=== PATIENT | male | born 1975 | race Caucasian/White ===

== ENCOUNTER → 2018-03-01 10:36 | Outpatient (CLI) | payer MEDICAID, SELFPAY ==
--- NOTE | 2018-03-01 10:36 | DI.REPORT_ITS ---
SYMPTOM/DIAGNOSIS: FRACTURE t14.8, TIB/FIB FRACTURE EPAIRED WITH HARDWARE RIGHT ANKLE: There are mild degenerative changes involving the mortise joint. There is no evidence of a fracture or dislocation. Note is made of the distal portion of an intramedullary nela and screw fixation device in the tibia.
== END ==
PROVIDERS: PCP Family Medicine; Visit Provider Family Medicine
DX: M25.571 Pain in right ankle and joints of right foot (principal); M19.071 Primary osteoarthritis, right ankle and foot
CPT/HCPCS: 73610

== ENCOUNTER 2020-05-19 10:08 | Outpatient (CLI) | payer MEDICAID, SELFPAY ==
--- NOTE | 2020-05-19 10:55 | DI.RAD_ITS ---
EXAM: XR SHOULDER LT COMPLETE 2+V CLINICAL HISTORY: SHOULDER JOINT DEFORMITY M21.929, H/O REPAIR LT CLAVICLE TECHNIQUE: COMPARISON: No exams were available for comparison FINDINGS: Five views were obtained. There is plate and screw fixation of the clavicle. There are prominent hy pertrophic degenerative changes of the acromioclavicular joint. Cartilaginous joint space of the gle nohumeral joint appears fairly well preserved. Moderate osteophyte formation noted at the greater tu berosity of the humerus and there are a couple of probable small subchondral cysts of the greater tub erosity of the humerus. Minimal marginal osteophyte formation of the glenoid noted. IMPRESSION: Degenerative changes as described above, hypertrophic AC joint changes are present. RADIATION DOSE DELIVERED: Total DLP
== END 2020-05-19 10:28 ==
PROVIDERS: PCP Family Medicine; Visit Provider Family Medicine
DX: M19.012 Primary osteoarthritis, left shoulder (principal); M21.922 Unspecified acquired deformity of left upper arm
CPT/HCPCS: 73030

== ENCOUNTER 2020-06-05 18:34 | Outpatient (REF) | payer MEDICAID, SELFPAY ==
[2020-06-10 02:00] LABS: SARS-CoV-2 RNA Undetected (Undetected); SARS-CoV-2 Specimen Source Nasal
== END 2020-06-05 18:54 ==
LOC: NCHCN 18:34
PROVIDERS: PCP Family Medicine; Visit Provider Physician Assistant
DX: R05 Cough (principal)
CPT/HCPCS: U0003

== ENCOUNTER 2020-09-30 19:07 | Outpatient (REF) | payer MEDICAID, SELFPAY ==
[2020-09-30 19:44] LABS: Hemoglobin A1C 5.8 % (<5.7)
[2020-09-30 19:53] LABS: Anion Gap 9.7 mmol/L (3-11); BUN 12 mg/dL (7-18); CO2 27.3 mmol/L (21.0-32.0); Calcium 8.8 mg/dL (8.5-10.1); Calculated LDL 139 mg/dL (<100); Chloride 104 mmol/L (98-107); Cholesterol 214 mg/dL (<200); Glucose 141 mg/dL (74-106); HDL Cholesterol 46 mg/dL (40-60); Potassium 3.6 mmol/L (3.5-5.1); Sodium 141 mmol/L (136-145); TSH (W/Ref FT4) 2.31 uIU/mL (0.36-3.74); Triglyceride 146 mg/dL (<150)
[2020-10-02 09:17] LABS: Hepatitis B Surface Ag Negative (Negative)
[2020-10-02 09:53] LABS: HIV-1/2 Ag & Ab Screen Negative (Negative)
[2020-10-02 10:14] LABS: Hepatitis C Ab w Rflx HCV PCR Negative (Negative)
== END 2020-09-30 19:08 | disposition home or self-care (01) ==
LOC: NCHCN 19:07
PROVIDERS: PCP Family Medicine; Visit Provider Family Medicine
DX: I10 Essential (primary) hypertension (principal); Z11.59 Encounter for screening for other viral diseases; Z11.4 Encounter for screening for human immunodeficiency virus [HIV]; Z13.1 Encounter for screening for diabetes mellitus; Z13.220 Encounter for screening for lipoid disorders
CPT/HCPCS: 80048; 80061; 86803; 87340; 87389; 83036; 84443

== ENCOUNTER 2021-07-19 15:58 | Outpatient (REF) | payer MEDICAID, SELFPAY ==
[2021-07-21 09:54] LABS: COVID-19 RT-PCR UVMMC Result Negative (Negative)
== END 2021-07-19 15:59 | disposition home or self-care (01) ==
LOC: NCHCN 15:58
PROVIDERS: PCP Family Medicine; Visit Provider Family Medicine
DX: Z20.822 Contact with and (suspected) exposure to COVID-19 (principal); R05.8 Other specified cough
CPT/HCPCS: U0003

== ENCOUNTER → 2022-01-05 01:26 | Outpatient (CLI) | payer MEDICAID, SELFPAY | PROVIDERS: PCP Family Medicine; Visit Provider Family Medicine ==

== ENCOUNTER 2023-12-22 15:42 | Outpatient (REF) | payer MEDICAID, SELFPAY ==
[2023-12-28 05:48] LABS: Methylphenidate 10 ng/mL (Cutoff: 10); Ritalinic Acid 2165 ng/mL (Cutoff: 50)
== END 2023-12-22 15:43 | disposition home or self-care (01) ==
LOC: NCHCN 15:42
PROVIDERS: PCP Family Medicine; Visit Provider Student in an Organized Health Care Education/Training Program
DX: F90.0 Attention-deficit hyperactivity disorder, predominantly inattentive type (principal); Z51.81 Encounter for therapeutic drug level monitoring; Z79.899 Other long term (current) drug therapy
CPT/HCPCS: 80360

== ENCOUNTER 2024-10-11 16:08 | Outpatient (REF) | payer MEDICAID, SELFPAY ==
[2024-10-11 18:05] LABS: ALT 52 U/L (16-63); AST 21 U/L (15-37); Albumin 3.5 g/dL (3.4-5.0); Alkaline Phosphatase 112 U/L (46-116); Bilirubin, Direct 0.1 mg/dL (0.0-0.2); Bilirubin, Total 0.5 mg/dL (0.2-1.0); Total Protein 7.2 g/dL (6.4-8.2)
== END 2024-10-11 16:09 | disposition home or self-care (01) ==
LOC: NCHCN 16:08
PROVIDERS: PCP Family Medicine; Visit Provider Student in an Organized Health Care Education/Training Program
DX: F11.21 Opioid dependence, in remission (principal)
CPT/HCPCS: 80076

== ENCOUNTER 2025-01-01 13:46 | Outpatient (REF) | payer MEDICAID, SELFPAY ==
[2025-01-01 16:21] LABS: ALT 45 U/L (16-63); AST 28 U/L (15-37); Albumin 3.7 g/dL (3.4-5.0); Alkaline Phosphatase 119 U/L (46-116); Anion Gap 7.7 mmol/L (3-11); BUN 10 mg/dL (7-18); Bilirubin, Total 0.4 mg/dL (0.2-1.0); CO2 29.3 mmol/L (21.0-32.0); Calcium 8.7 mg/dL (8.5-10.1); Calculated LDL 130 mg/dL (<100); Chloride 101 mmol/L (98-107); Cholesterol 201 mg/dL (<200); Estimated GFR 92.84 (mL/min/1.73m2); Glucose 137 mg/dL (74-106); HDL Cholesterol 42 mg/dL (>or=40); Potassium 3.8 mmol/L (3.5-5.1); Sodium 138 mmol/L (136-145); Total Protein 7.3 g/dL (6.4-8.2); Triglyceride 148 mg/dL (<150)
[2025-01-01 16:26] LABS: COMMENT (LAB VIEW ONLY) 194.09 mg/dL; Microalb ug/mg Crea 4.9 ug/mg Cr
[2025-01-01 16:27] LABS: Hemoglobin A1C 5.7 % (<5.7)
[2025-01-01 16:54] LABS: Bilirubin, Direct 0.1 mg/dL (0.0-0.2)
== END 2025-01-01 13:47 | disposition home or self-care (01) ==
LOC: NCHCN 13:46
PROVIDERS: PCP Family Medicine; Visit Provider Student in an Organized Health Care Education/Training Program
DX: I10 Essential (primary) hypertension (principal); Z13.220 Encounter for screening for lipoid disorders; F11.21 Opioid dependence, in remission; R73.03 Prediabetes
CPT/HCPCS: 80048; 80061; 80076; 82043; 82570; 83036